=== PATIENT | male | born 1990 | race American Indian/Alaskan Native ===

== ENCOUNTER 2019-01-23 08:32 | Emergency (ER) | payer OTHER ==
[2019-01-23 09:21] VITALS: BP 126/90
[2019-01-23] MEDS ORDERED: TORADOL IM ONE (09:53)
--- NOTE | 2019-01-23 09:59 | XRay Report ---
LEFT KNEE, 3 views: History: Left knee pain. A large joint effusion is detected on the lateral image. Normal bony structures and joint space. IMPRESSION: Large joint effusion. No bony abnormality is detected. If internal derangement is suspected, MRI should provide the most information.
--- NOTE | 2019-01-23 10:15 | Emergency Department Report ---
ED Extremity Problem HPI - General Chief complaint: Extremity Injury, Lower Stated complaint: L KNEE INJURY Time Seen by Provider: 01/23/19 09:33 Source: patient Mode of arrival: Wheelchair Limitations: No Limitations - History of Present Illness Initial comments: 29-year-old male injured his left knee while getting out of bed. He felt something pop out and then popped back in. Patient has had pain and swelling since. Denies previous injury. MD Complaint: extremity pain, extremity swelling -: days(s) (2) Location: left, lower extremity -: Yes arthralgia Radiation: none Severity scale (0 -10): 8 Quality: aching, constant Consistency: constant Improves with: immobilization Worsens with: weight bearing, walking, palpation, other (bending) Associated Symptoms: denies other symptoms - Related Data Previous Rx's Medication Instructions Recorded Last Taken Type Ibuprofen [Motrin] 800 mg PO Q8HR PRN #30 tablet 01/23/19 Unknown Rx traMADol [Ultram 50 MG tab] 50 mg PO Q6HR PRN #20 tablet 01/23/19 Unknown Rx Allergies Allergy/AdvReac Type Severity Reaction Status Date / Time No Known Allergies Allergy Unverified 01/23/19 08:37 ED Review of Systems ROS: Stated complaint: L KNEE INJURY Other details as noted in HPI Comment: All other systems reviewed and negative ED Past Medical Hx - Past Medical History Previous Medical History?: No - Surgical History Past Surgical History?: No - Social History Smoking Status: Never Smoker Substance Use Type: None - Medications Home Medications: Home Medications Medication Instructions Recorded Confirmed Last Taken Type Ibuprofen [Motrin] 800 mg PO Q8HR PRN #30 tablet 01/23/19 Unknown Rx traMADol [Ultram 50 MG tab] 50 mg PO Q6HR PRN #20 tablet 01/23/19 Unknown Rx ED Physical Exam - General Limitations: No Limitations - Other Other exam information: General: No limitations, patient is alert in no acute distress Head exam: Atraumatic, normocephalic Eyes exam: Normal appearance ENT: Moist mucous membrane, normal oropharynx Neck exam: Normal inspection, Respiratory exam: Clear to auscultation bilateral, no wheezes, rales, crackles Cardiovascular: Normal rate and rhythm, normal heart sounds Abdomen: Soft, nondistended, and nontender, with normal bowel sounds, no rebound, or guarding Extremity: Left knee generalized swelling/effusion. Tenderness at the lateral and inferior bilateral knee area of effusion. No significant tenderness at the medial lateral ligaments. No signs of instability with valgus and varus stress. No warmth or erythema. No dislocation or deformity. Back: Normal Inspection, full range of motion, no tenderness Neurologic: Alert, oriented x3, cranial nerves intact, no motor or sensory deficit Psychiatric: normal affect, normal mood Skin: Warm, dry, intact ED Course Vital Signs 01/23/19 09:15 Temperature 97.9 F Pulse Rate 75 Respiratory 16 Rate Blood Pressure 126/90 O2 Sat by Pulse 99 Oximetry ED Medical Decision Making - Radiology Data Radiology results: report reviewed LEFT KNEE, 3 views: History: Left knee pain. A large joint effusion is detected on the lateral image. Normal bony structures and joint space. IMPRESSION: Large joint effusion. No bony abnormality is detected. If internal derangement is suspected, MRI should provide the most information. - Medical Decision Making It is likely that patient had a patellar dislocation with spontaneous reduction with persistence of pain, swelling and possible ligamentous injury. X-ray does not show an acute fracture but does show effusion likely traumatic in origin. Patient placed in knee immobilizer, crutches, and pain meds. Orthopedic follow- up will be encouraged. - Differential Diagnosis fracture, contusion, sprain, dislocation Critical Care Time: No Critical care attestation.: If time is entered above; I have spent that time in minutes in the direct care of this critically ill patient, excluding procedure time. ED Disposition Clinical Impression: Patellar dislocation Qualifiers: Laterality: left Knee sprain Qualifiers: Laterality: left Disposition: - TO HOME OR SELFCARE Is pt being admited?: No Does the pt Need Aspirin: No Condition: Stable Instructions: Knee Immobilizer (ED), Knee Sprain (ED) Additional Instructions: Take the medication as prescribed. Follow up with your doctor or the clinic/doctor provided. Return if symptoms worsen as indicated by your discharge instructions Prescriptions: Ibuprofen [Motrin] 800 mg PO Q8HR PRN #30 tablet PRN Reason: Pain, Moderate (4-6) traMADol [Ultram 50 MG tab] 50 mg PO Q6HR PRN #20 tablet PRN Reason: Pain , Severe (7-10) Referrals: ROSS SULTANA MD [Primary Care Provider] - 3-5 Days RICCO HOFFMANN MD [Staff Physician] - 3-5 Days (orthopedic doctor) Forms: Work/School Release Form(ED) Time of Disposition: 10:18
== END 2019-01-23 11:03 | disposition home or self-care (01) ==
LOC: ED 08:32
DX: S83.92XA Sprain of unspecified site of left knee, initial encounter (principal); S83.095A Other dislocation of left patella, initial encounter; X58.XXXA Exposure to other specified factors, initial encounter; Y93.89 Activity, other specified; Y92.009 Unspecified place in unspecified non-institutional (private) residence as the place of occurrence of the external cause; Y99.8 Other external cause status
CPT/HCPCS: 29505; 73562; 96372; 99284; J1885